=== PATIENT | female | born 2005 | race Caucasian/White ===

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

== ENCOUNTER 2025-02-07 20:21 | Emergency (ER) | payer MEDICAID, SELFPAY ==
[2025-02-07 20:24] VITALS: BP 130/80; PULSE 76; RESP 17; TEMP 36.9; O2SAT 100; BMI 35.0
--- NOTE | 2025-02-07 20:26 | ED_ITS ---
HPI - Abdominal Pain General Chief Complaint: Abdominal Pain Stated Complaint: , stomach pain Time Seen by Provider: 02/07/25 21:20 Source: patient Mode of arrival: ambulatory Limitations: no limitations History of Present Illness ED Provider: HPI narrative: Patient's about 6 weeks complaining of mid abdominal discomfort no vaginal discharge no urinary symptoms no nausea no vomiting no fever no chills no pelvic pain Related Data Previous Rx's ?Medication ?Instructions ?Recorded levonorgestrel 1.5 mg tablet (Plan 1.5 mg PO ONCE #1 tab 07/13/23 B One-Step) nitrofurantoin 100 mg PO BID 7 days #14 caps 02/07/25 monohydrate/macrocrystals 100 mg capsule (Macrobid) Allergies Allergy/AdvReac Type Severity Reaction Status Date / Time No Known Allergies Allergy Verified 02/07/25 20:26 Review of Systems Review of Systems Yes all other systems are reviewed and are negative [facility]LY [facility] Past Medical History Medical History Right shoulder pain URI (upper respiratory infection) Academic underachievement Eating problem Adjustment disorder of adolescence Obesity (BMI 35.0-39.9 without comorbidity) Obesity Social History Social History Household Members: Family Household Members Other:: lives w/ 27 yr old sister [place]:pt BF x 1 week Advance Directives: No Advance Directives Information Provided: No Do you have a plan to hurt others: No Plan Sexual orientation: one same sex partner and 2 male partners Physical Exam ED Vital Signs: Vital Signs - 24 hr 02/07/25 20:24 02/07/25 22:13 02/07/25 22:14 Temperature 98.5 F 97.1 F 97.1 F Pulse Rate 76 70 70 Respiratory Rate 17 20 20 Blood Pressure 130/80 108/70 108/70 Pulse Oximetry 100 100 100 Oxygen Delivery Method Room Air Room Air Room Air BMI result Body Mass Index 35.0 Appearance: Alert. Oriented X3. No acute distress. Eyes: PERRLA, No Nystagmus ENT: Pharynx normal. Oral Mucosa moist Neck: Normal inspection. Neck supple. CVS: Normal heart rate and rhythm. Pulses normal. Respiratory: No respiratory distress. Equal air entry bilateral, no wheezing/rales/rhonchi Abdomen: Soft and mild discomfort epigastric area. Bowel sounds are present, no mass palpable, no CVA tenderness Skin: Skin warm and dry. Normal skin color. Normal skin turgor. Extremities: No lower extremity edema. No calf tenderness Neuro: Oriented X 3. No motor deficit. No sensory deficit.No cerebellar signs , cranial nerves II-XII intact Course Course Course Narrative: This is a Rapid Medical Examination (RME) performed by Cesar Quintero PA-C in triage. Full HPI, ROS, assessment and treatment plan per primary provider in the Main ED. Hx: 19 yo female here for eval of severe epigastric and RLQ abd pain since yesterday. no radiation. LMP beginning of December. reports positive home test 2 days ago. no OBGYN follow up. no vaginal discharge/bleeding, urinary sx, vomiting. PE/vitals: well appearing Plan: labs, UA Medical Decision Making Lab Data [facility] Lab Attestation statement: I reviewed the patient's lab results. 02/07/25 20:38 02/07/25 20:38 Labs: Lab Results 02/07/25 02/07/25 Range/Units 20:38 20:50 WBC 13.0 H (4.8-10.8) X10*3/uL RBC 4.62 (4.20-5.50) X10*6/uL Hgb 13.3 (12.0-16.0) g/dl Hct 38.6 (37.0-47.0) % MCV 83.5 (80.0-98.0) fL MCH 28.8 (27.0-33.0) pg MCHC 34.5 (31.0-35.0) g/dl RDW 12.3 (11.0-16.0) % Plt Count 300 (160-400) X10*3/uL MPV 9.8 (9.4-12.3) fL Immature Gran % (Auto) 0.3 (0.0-0.4) % Neut % (Auto) 69.3 (45-73) % Lymph % (Auto) 20.4 (20-40) % [place] % (Auto) 8.4 (2-11) % Eos % (Auto) 1.2 (0-4) % Baso % (Auto) 0.4 (0-2) % Lymph # (Auto) 2.6 (1.2-4.9) X10*3/uL [place] # (Auto) 1.1 (0.1-1.2) X10*3/uL Eos # (Auto) 0.2 (0.0-0.4) X10*3/uL Baso # (Auto) 0.1 (0.0-0.2) X10*3/uL Abs Immat Gran (auto) 0.04 H (0.00-0.03) X10*3/uL Absolute Neuts (auto) 9.0 H (2.0-8.3) x10*3/uL Absolute Nucleated RBC 0.000 (0.0-0.012) X10*3/uL Nucleated RBC % (auto) 0.0 (0.0-0.2) /100WBC Sodium 137 (135-145) mmol/L Potassium 4.1 (3.3-5.1) mmol/L Chloride 106 (96-108) mmol/L Carbon Dioxide 23 (22-29) mmol/L Anion Gap 12 (12-20) BUN 8 L (9-16) mg/dL Creatinine 0.66 (0.5-1.4) mg/dL Estim Creat Clear Calc 145.7 Estimated GFR > 60 Random Glucose 91 (60-115) mg/dL Calcium 9.4 (8.4-10.2) mg/dL Magnesium 1.9 (1.6-2.6) mg/dL Total Bilirubin 0.2 (0.0-1.0) mg/dL AST 21 (5-31) U/L ALT 32 H (0-31) U/L Alkaline Phosphatase 99 (39-117) U/L Total Protein 7.9 (6.5-8.0) g/dL Albumin 4.2 (3.5-5.0) g/dL Lipase 17 (8-78) U/L Beta HCG, Quant 57726 mIU/mL Urine Color Yellow Urine Appearance Cloudy Urine pH 6.0 (5.0-9.0) Ur Specific [place] 1.025 (1.005-1.025) Urine Protein Trace (Neg-Trace) mg/dL Urine Glucose (UA) Negative (Negative) mg/dL Urine Ketones Trace (Negative) mg/dL Urine Blood Negative (Negative) Urine Nitrite Negative (Negative) Ur Leukocyte Esterase Moderate (2+) H (Negative) Urine RBC 0-2 (0-2) /HPF Urine WBC 21-50 H (0-5) /HPF Ur Squamous Epith Cells >20 (0-2) /HPF Urine Bacteria 4+ (None Seen) Hyaline Casts 0-2 (0-2) /LPF Medications Administered Discontinued Medications Generic Name Dose Route Start Last Admin Trade Name Freq PRN Reason Stop Dose Admin Nitrofurantoin Macrocrystals 100 mg 02/07/25 21:25 02/07/25 21:34 Nitrofurantoin Monohyd/M-Cryst 100 Mg Capsule PO 02/07/25 21:26 100 mg ONCE ONE Administration Discharge Plan Discharge Clinical Impression: Urinary tract infection during Patient Disposition: Home, Self-Care Instructions: Urinary Tract Infection in (ED) Additional Instructions: You are about 6 weeks and you have urinary tract infection Take antibiotics as prescribed Drink plenty of fluids Follow up with your ObG Prescriptions: New nitrofurantoin monohyd/m-cryst [Macrobid] 100 mg capsule 100 mg PO BID 7 Days Qty: 14 0RF Rx Instructions: must administer with a meal/food No Action levonorgestrel [Plan B One-Step] 1.5 mg tablet 1.5 mg PO ONCE Qty: 1 0RF Interventions: ED Discharge Assessment Last Done: 02/07/25 22:14 Discharge Date/Time: 02/07/25 22:15 Print Language: Mosotho
[2025-02-07 20:42] LABS: MANUAL DIFF FLAG NO
[2025-02-07 20:44] LABS: Basophils Absolute Auto 0.1 X10*3/uL (0.0-0.2); Basophils Percent Auto 0.4 % (0-2); Eosinophils Absolute Auto 0.2 X10*3/uL (0.0-0.4); Eosinophils Percent Auto 1.2 % (0-4); Hematocrit 38.6 % (37.0-47.0); Hemoglobin 13.3 g/dl (12.0-16.0); Imm Gran Abs Auto 0.04 X10*3/uL (0.00-0.03); Imm Gran Pct Auto 0.3 % (0.0-0.4); Lymphocytes Absolute Auto 2.6 X10*3/uL (1.2-4.9); Lymphocytes Percent Auto 20.4 % (20-40); Mean Corpuscular HGB Conc 34.5 g/dl (31.0-35.0); Mean Corpuscular Hemoglobin 28.8 pg (27.0-33.0); Mean Corpuscular Volume 83.5 fL (80.0-98.0); Mean Platelet Volume 9.8 fL (9.4-12.3); Monocytes Absolute Auto 1.1 X10*3/uL (0.1-1.2); Monocytes Percent Auto 8.4 % (2-11); Neutrophils Percent Auto 69.3 % (45-73); Platelet Count 300 X10*3/uL (160-400); Red Blood Count 4.62 X10*6/uL (4.20-5.50); Red Cell Distribution Width 12.3 % (11.0-16.0)
[2025-02-07 20:56] LABS: Alanine Aminotransferase 32 U/L (0-31); Albumin Level 4.2 g/dL (3.5-5.0); Alkaline Phosphatase 99 U/L (39-117); Anion Gap 12 (12-20); Aspartate Amino Transferase 21 U/L (5-31); Bilirubin Total 0.2 mg/dL (0.0-1.0); Blood Urea Nitrogen 8 mg/dL (9-16); Calcium 9.4 mg/dL (8.4-10.2); Carbon Dioxide 23 mmol/L (22-29); Chloride 106 mmol/L (96-108); Creatinine Clr Calc Pharmacy 145.7; Estimated Glomerular Filt Rate > 60; Glucose Random 91 mg/dL (60-115); Lipase 17 U/L (8-78); Magnesium 1.9 mg/dL (1.6-2.6); Potassium 4.1 mmol/L (3.3-5.1); Sodium 137 mmol/L (135-145); Total Protein 7.9 g/dL (6.5-8.0)
[2025-02-07 20:57] LABS: Appearance Urine Cloudy; Color Urine Yellow; Glucose Urine UA Negative (Negative); Leukocyte Esterase Urine Moderate (2+) (Negative); Nitrite Urine Negative (Negative); Specific Gravity - Urine 1.025 (1.005-1.025); UMIC TRIGGER UACC YES; Urine Blood Negative (Negative); Urine Ketones Trace mg/dL (Negative); Urine Protein Trace mg/dL (Neg-Trace)
--- OUTSIDE RECORDS SUMMARY | 2025-02-07 21:00 | XMS_ITS | Clinical Summary ---
Author Organization [employer] [facility] Address [address] [place] [address] Care Team Providers Care Gallery Host Name Role Phone Magalie Edge MD Primary Care Provider [phone] Allergies No known active allergies Medications ibuprofen 400 MG tablet 1 tablet by Oral route every 6 hrs prn 07/16/2015 Active multivitamin with minerals (Cerovite) 18-400 mg-mcg tablet tabletIndication s:Encounter for routine child health examination without abnormal findings Take 1 tablet by mouth in the morning. 90 tablet 3 11/17/2022 Active New Day 1.5 MG tablet Take 1.5 mg by mouth 1 (one) time. 07/13/2023 Active medroxyPROGESTER one (Depo-Provera) 150 MG/ML injection Inject 1 mL (150 mg) into the muscle every 3 (three) months. 1 mL 3 04/08/2024 Active Hospital, Clinic, or Other Facility Administered Medication Ordered Dose Route Frequency Start Date End Date Status medroxyPROGESTERone (Depo-Provera) injection 150 mgIndications:Encounte r for management and injection of depo-Provera 150 mg IM Every 3 months 04/08/2024 04/03/2025 Active Active Problems Problem Noted Date Diagnosed Date Overweight 09/05/2019 Assessment & Plan (02/20/2024 10:47 AM EDT): - encouraged to work on lifestyle modifications Encounters Date Type Department Care Team Description 02/06/[address] [facility] MEDICINE [address] [place] [address] Magalie Edge MD Referral 12/27/2024 Population Health Risk Score [facility] ([facility]) Department [address] [id number] Provider, Population Health Generic 12/04/2024 1:30 PM EST Office Visit [facility] OPTOMETRY [address] [place] [address] Katherine Obregon, OD Myopia of both eyes (Primary Dx) 12/04/2024 Travel from Last 3 Months Immunizations Name Administration Dates Next Due DTaP 02/19/2009, 6,2005,09/26 HPV 9-Valent 07/18/2017,01/03/2017 Hep A, ped/adol, 2 dose 09/01/2015,06/21/2011 Hep B, Adolescent or Pediatric 2005,2005,2005 Hib (HbOC) 05/12/2006, 6,2005,09/26 IPV 02/19/2009, 6,2005,09/26 Influenza injectable quadriv alent preservative free 11/17/2022,08/05/2021,12/24/2020,09/05,07/18/2017,01/03/2017,09/01/2015 Influenza, Split (incl. [place] f[place] surface antigen) 07/11/2013,08/31/2012 MMR 02/19/2009,03/27/2006 Meningococcal MCV4P ACYW-135 08/05/2021,01/04/20 17 Pfizer Covid-19 Vaccine 12+ 02/20/2024 Pfizer Covid-19 Vaccine 12+ Bivalent 11/17/2022 Pneumococcal Conjugate PCV 7 05/12/2006, 2005,2005,09/26 Tdap 01/03/2017 Varicella 02/19/2009,03/27/2006 Social History Tobacco Use Types Packs/Day Years Used Date Smoking Tobacco: Never Smokeless Tobacco: Never Tobacco Cessation:Counseling Given: Not Answered Alcohol Use Standard Drinks/Week Comments Never 0 (1 standard drink = 0.6 oz pur e alcohol) Depression Answer Date Recorded Patient Health Questionnaire-9 Score 0 02/20/2024 Patient Health Questionnaire-9 Score 0 02/20/2024 Last PHQ-9: Questionnaire Data Not on file 0 02/20/2024 Housing Stability Answer Date Recorded What is your housing situation today? I have dimas [place] 02/20/[address] you li ve. Do you have problems with any of the following? None of the above 02/20/2024 Food Insecurity Answer Date Recorded Within the past 12 months, y ou worried that your food would run out before you got money to buy more: Never True 02/20/2024 Within the past 12 months,th e food you bought just didn't last and you didn't have enough money to get more: Never True 04/2024 Transportation Answer Date Recorded In the past 12 months, has l ack of transportation kept you from medical appts, meetings, work or from getting things needed for daily living? No 02/20/2024 Utilities Answer Date Recorded In the past 12 months, has t he electric, gas, oil or water company threatened to shut off services in your home? No 02/20/2024 Depression Answer Date Recorded Patient Health Questionnaire-2 Score 0 02/20/2024 Comments Unknown Sex and Gender Information Value Date Recorded Sex Assigned at Female 08/15/2022 10:20 AM EDT Legal Sex Female 10:20 AM EDT Gender Identity Female 08/15/2022 10:20 AM EDT Sexual Orientation Don't know 08/15/2022 10 :20 AM EDT Last Filed Vital Signs Vital Sign Reading Time Taken Comments Blood Pressure 110/80 02/20/2024 10:19 AM EDT Pulse 73 02/20/2024 10:19 AM EDT Temperature 36.1 ??C (96.9 ??F) 02/20/2024 10:19 AM E DT Respiratory Rate 23 02/20/2024 10:19 AM EDT Oxygen Saturation 100% 02/20/2024 10:19 AM EDT Inhaled Oxygen Concentration - - Weight 85.4 kg (188 lb 3.2 oz) 02/20/2024 10:19 AM EDT Height 162.3 cm (5' 3.88 ) 02/20/2024 10:19 AM E DT Body Mass Index 32.43 02/20/2024 10:19 AM EDT Plan of Treatment Upcoming Encounters Date Type Department Care Team (Late st Contact Info) Description 03/04/2025 1:45 PM EDT Office Visit [facility] MEDICINE [address] [place] [address] Magalie Edge MD [address] [place], [place] [phone] Health Maintenance Due Date Last Done Comments Chlamydia and Gonorrhea Screening 2005 HIV Screening 2005 Hepatitis B Vaccines (4 of 4 - 4-dose series) 01/16/2006 2005, 2005, 2005 Alcohol/Substance Use Screening 2017 Family Planning (PISQ) 02/09/2020 Fluoride Varnish 02/13/2020 08/14/2019, 2013 Hepatitis C Screening 2023 COVID-19 Vaccine ( season) 2024 02/20/2024, 11/17/2022, 03/09/2021, Additional history exists Influenza Vaccine (#1) 2024 , 08/05/2021, 12/24/2020, Additional history exists Depression Screening 02/19/2025 02/20/2024, 02/20/20 24 SDOH Screening 02/19/2025 02/20/2024 Tobacco Screening 02/19/2025 02/20/2024 DTaP/Tdap/Td Vaccines (6 - Td or Tdap) 01/03/2027 01/03/2017, 02/19/2009, 05/12/2006, Additional history exists Zoster Vaccines (1 of 2) 2055 RSV Patients and Patients Aged 60 years or older (1 - 1-dose 75+ series) 02/09/2080 HIB Vaccines Completed 05/12/2006, 05/2006, 2005, Additional history exists Pneumococcal Vaccine: Pediatrics (0 to 5 Years) and At-Risk Patients (6 to 49) Years) Aged Out 05/12/2006, 2005, 2005, Additional history exists No longer eligible based on patient's age to complete this topic IPV Vaccines Completed 02/19/2009, 05/2006, 2005, Additional history exists MMR Vaccines Completed 02/19/2009, 03/27/2006 Varicella Vaccines Completed 02/19/2009, 03/27/2006 Hepatitis A Vaccines Completed 09/01/2015, 06/21/20 11 HPV Vaccines Completed 07/18/2017, 01/03/2017 Meningococcal Vaccine Completed 08/05/2021, 017 RSV under 20 months Aged Out No longe r eligible based on patient's age to complete this topic Rotavirus Vaccines Aged Out No longer eligible based on patient's age to complete this topic Procedures Procedure Name Priority Date/Time Associated Diagnosis Comments TOPICAL APPLICATION OF FLUORIDE VARNISH Routine 08/14/2019 12:00 AM EDT from Last 3 Months or Most Recently Relevant to Health Maintenance [facility] Care Teams Gallery Host Relationship Specialty Start Date End Date Magalie Edge MD [address] [place] [address] PCP - General Family Medicine 12/15/23
--- OUTSIDE RECORDS SUMMARY | 2025-02-07 21:00 | XMS_ITS | Encounter Summary ---
Author Organization [employer] Address [address] [place] [address] Care Team Providers Care Java Android Developer Name Role Phone Magalie Edge MD Primary Care Provider [phone] Reason for Visit * Reason Onset Date Comments Referral 02/06/2025 Encounter Details Date Type Department Care Team ([facility] st Contact Info) Description 02/06/2025 Telephone [facility] MEDICINE [address] [place] [address] Magalie Edge MD [address] [place] [address] Referral Social History Tobacco Use Types Packs/Day Years Used Date Smoking Tobacco: Never Smokeless Tobacco: Never Alcohol Use Standard Drinks/Week Comments Never 0 [...] Don't know 08/15/2022 10 :20 AM EDT documented as of this encounter Miscellaneous Notes * Telephone Encounter - Kiki Panda - 02/06/2025 10:24 AM EDT Pt has a positive test and would like a referral to obgyn at [facility]. documented in this encounter Plan of Treatment Upcoming Encounters Date Type Department Care Team (Late st Contact Info) Description 03/04/2025 1:45 PM EDT Office Visit [facility] MEDICINE [address] [place] [address] Magalie Edge MD [address] [place] [address] documented as of this encounter Visit Diagnoses Not on filedocumented in this encounter Additional Health Concerns Assessment Noted Time PHQ-9 Depression Total Score: 0 02/20/20 10:20 AM EDT documented as of this encounter Care Teams Java Android Developer Relationship Specialty Start Date End Date Magalie Edge MD [address] [place] [address] PCP - General Family Medicine 12/15/23 documented as of this encounter
[2025-02-07 21:10] LABS: Bacteria Urine 4+ (None Seen); Hyaline Casts Urine 0-2 /LPF (0-2); RBC Urine 0-2 /HPF (0-2); Squamous Epithelial Cell Urine >20 /HPF (0-2); UACC Culture Trigger YES; WBC Urine 21-50 /HPF (0-5)
[2025-02-07] MEDS: Nitrofurantoin Monohyd/M-Cryst 100 MG CAPSULE PO (21:34)
[2025-02-07 21:52] LABS: HCG Quantitative 95828 mIU/mL
[2025-02-07 22:13] VITALS: BP 108/70; PULSE 70; RESP 20; TEMP 36.2; O2SAT 100
[2025-02-07 22:14] VITALS: BP 108/70; PULSE 70; RESP 20; TEMP 36.2; O2SAT 100
== END 2025-02-07 22:15 | disposition home or self-care (01) ==
PROVIDERS: Physician Assistant Medical; Emergency Provider Internal Medicine
DX: O23.41 Unspecified infection of urinary tract in pregnancy, first trimester (principal); N39.0 Urinary tract infection, site not specified; O26.891 Other specified pregnancy related conditions, first trimester; R10.13 Epigastric pain; Z3A.01 Less than 8 weeks gestation of pregnancy
CPT/HCPCS: 36415; 80053; 81001; 83690; 83735; 84702; 85025; 87086; 99283